=== PATIENT | male | born 1955 | race Caucasian/White ===

== ENCOUNTER 2017-04-14 08:14 | Inpatient (IN) | payer MEDICAID, OTHER ==
[~2017-04-14] VITALS: Ht 182.9 cm; Wt 88.9 kg
--- NOTE | 2017-04-14 08:20 | NUR ---
PATIENT TO ED DT CHEST PAIN, PRESSURE LIKE, 3/10, NON RADITING SINCE THIS MORNING. PATIENT IS AAO4. NO SOB NOTED. SKIN IS WARM TO TOUCH AND NON DIAPHORETIC, AFEBRILE. VSS.
--- NOTE | 2017-04-14 08:25 | NUR ---
EKG IN PROGRESS
[2017-04-14] MEDS ORDERED: ASPIRIN 81 MG TAB.CHEW PO ONE (08:30)
[2017-04-14] MEDS ORDERED: NITROGLYCERIN PACKET 1 GM PACKET TD ONE (08:30)
[2017-04-14] MEDS ORDERED: ASPIRIN 81 MG TAB.CHEW ONE (08:34)
[2017-04-14] MEDS ORDERED: NITROGLYCERIN PACKET 1 GM PACKET ONE (08:34)
[2017-04-14] MEDS ORDERED: EZET10TA PO (08:53)
[2017-04-14 09:11] LABS: BASOPHILS # (AUTO) 0.1 /CMM (0.0-0.2); BASOPHILS % (AUTO) 1.1 % (0.0-2.0); EOSINOPHILS # (AUTO) 0.1 /CMM (0.0-0.7); HEMATOCRIT 46 % (39-51); HEMOGLOBIN 15.6 g/dL (13.5-17.5); LYMPHOCYTES # (AUTO) 1.8 /CMM (0.8-4.8); LYMPHOCYTES % (AUTO) 28.2 % (20.0-44.0); MEAN CORPUSCULAR HEMOGLOBIN 30 PG (26.0-33.0); MEAN CORPUSCULAR HGB CONC 34 g/dl (31.0-36.0); MEAN CORPUSCULAR VOLUME 89 fL (80-96); MONOCYTES # (AUTO) 0.4 /CMM (0.1-1.30); MONOCYTES % (AUTO) 6.6 % (2.0-12.0); NEUTROPHILS % (AUTO) 62.1 % (43.0-81.0); PLATELET COUNT (AUTO) 211 /CMM (150-450); RDW COEFFICIENT OF VARIATION 12.8 (11.5-15.0); WHITE BLOOD COUNT (AUTO) 6.4 K/uL (4.3-11.0)
[2017-04-14 09:26] LABS: CALCIUM, SERUM 9.3 mg/dL (8.5-10.1); CARBON DIOXIDE 25 mmol/L (21-32); CHLORIDE 107 mmol/L (98-107); CREATININE 1.1 mg/dL (0.6-1.3); GLUCOSE 134 mg/dL (74-106); POTASSIUM 4.6 mmol/L (3.5-5.1); SODIUM SERUM 142 mmol/L (136-145); UREA NITROGEN, BLOOD 14 mg/dL (7-18)
[2017-04-14 09:28] LABS: INR 0.93 (0.87-1.13); PROTHROMBIN TIME 9.7 SECS (9.5-12.7)
[2017-04-14 09:32] LABS: ALANINE AMINOTRANSFERASE 37 U/L (12-78); ALBUMIN 3.8 g/dL (3.4-5.0); ALKALINE PHOSPHATASE 65 U/L (46-116); ASPARTATE AMINOTRANSFERASE 24 U/L (15-37); BILIRUBIN,DIRECT 0.1 mg/dL (0.0-0.2); BILIRUBIN,TOTAL 0.6 mg/dL (0.2-1.0)
[2017-04-14 09:33] LABS: TROPONIN I < 0.017 ng/mL (0.00-0.056)
--- NOTE | 2017-04-14 10:02 | NUR ---
PANEL ON-CALL PAGED
--- NOTE | 2017-04-14 10:19 | NUR ---
TELEMETRY ROOM 321-2
[2017-04-14] MEDS ORDERED: IV NS 0.9% 1,000 ML IV PRN (10:29)
[2017-04-14] MEDS ORDERED: HYDROCODONE/APAP 5/325MG 1 EACH TABLET PO PRN (10:30)
[2017-04-14] MEDS ORDERED: MORPHINE SULFATE INJ 2 MG/ML DISP.SYRIN IV PRN (10:30)
[2017-04-14] MEDS ORDERED: MAG HYDROX/AL HYDROX/SIMETH 30 ML UDC PO PRN (10:30)
[2017-04-14] MEDS ORDERED: ZOLPIDEM TARTRATE 5 MG TABLET PO PRN (10:30)
[2017-04-14] MEDS ORDERED: Z GUARD REMEDY 2 OZ OINT TP PRN (10:30)
[2017-04-14] MEDS ORDERED: ACETAMINOPHEN 325 MG TABLET PO PRN (10:30)
[2017-04-14] MEDS ORDERED: ONDANSETRON HCL/PF 4 MG/2 ML VIAL IVP PRN (10:30)
[2017-04-14] MEDS ORDERED: MAGNESIUM HYDROXIDE 30 ML UDC PO PRN (10:30)
--- NOTE | 2017-04-14 10:39 | NUR ---
PATIENT TRANSPORTED TO [facility] 3. S
--- NOTE | 2017-04-14 10:39 | NUR ---
REPORT GIVEN TO THERESA VILLALOBOS FOR [facility]CI[facility]
[2017-04-14 11:00] VITALS: BP 111/67
[2017-04-14] MEDS ORDERED: hydrALAZINE HCL 25 MG TABLET PO PRN (11:00)
--- NOTE | 2017-04-14 11:00 | NUR ---
RN NOTES PT RECEIVED FROM ER VIA [facility], PT ABLE TO AMBULATE TO BED FROM [facility], RESPIRATIONS EVEN AND UNLABORED, DENIES ANY PAIN OR DISCOMFORT AT THIS TIME. IV ACCESS TO LAC PATENT AND INTACT, NON REDNESS OR INFILTRATION NOTED. SAFETY MEASURES IN PLACE, KEPT CLEAN DRY AND COMFORTABLE, DR. PABLO AWARE OF PTS ARRIVAL, WILL CARRY OUT ADMITTING ORDERS
--- NOTE | 2017-04-14 11:04 | NUR ---
PATIENT TRANSPORTED TO TELE3/; VSS
[2017-04-14 12:00] VITALS: BP 111/67
[2017-04-14 16:00] VITALS: BP 128/66
--- NOTE | 2017-04-14 16:15 | NUR ---
RN NOTES PT AWAKE ALERT AND VERBALLY RESPONSIVE, RESPIRATIONS EVEN AND UNLABORED, DENIES ANY PAIN OR DISCOMFORT AT THIS TIME. IV ACCESS AND ID BAND REMOVED WITH NO ASE NOTED. PATIENT SEEN AND EXAMINED BY DR. PABLO WITH ORDERS FOR DISCHARGE AND TO MAKE APPT WITH SOLICITOR PATENT DR. BANERJEE, ALL DISCHARGE INSTRUCTIONS REVIEWED WITH PT WITH VERBAL UNDERSTANDING NOTED. ALL BELONGINGS ACCOUNTED FOR, NO SKIN ISSUES NOTED, DISCHARGED TO HOME IN STABLE CONDITION
== END 2017-04-14 16:15 | disposition home or self-care (01) | DRG 207 ==
LOC: ER 08:16 → TELE 10:28
PROVIDERS: ADMIT Internal Medicine; ATTEND Internal Medicine
DX: I31.9 Disease of pericardium, unspecified (principal); E78.5 Hyperlipidemia, unspecified; E86.0 Dehydration; F41.9 Anxiety disorder, unspecified; K21.9 Gastro-esophageal reflux disease without esophagitis; K57.30 Diverticulosis of large intestine without perforation or abscess without bleeding; Z95.5 Presence of coronary angioplasty implant and graft
CPT/HCPCS: 36415; 71010-TC; 71250-TC; 80048-TC; 80076-TC; 84484-TC; 85025-TC; 85730-TC; 87081-TC